=== PATIENT | male | born 1940 ===

== ENCOUNTER 2017-08-19 00:45 | Day surgery (SDC) | payer OTHER ==
[~2017-08-19] VITALS: Ht 177.8 cm; Wt 98.0 kg
[~2017-08-19 00:45] MED LIST: ATOR40TA; CALCA400CH; CEFP250; DIGO.25 PO; GLIP5 PO; HYDROCHLOROTHIAZIDE PO; INSUASPI SC; INSULANPEN SC; INSULIN; LOSARTAN PO; LOSARTAN POTAS100 MG PO; LOSARTAN-HCTZ1 EAC1 PO; LOSHYD100 PO; MAGCHL64ER; METF500 PO; SITA100T2 PO; VALS80 PO; VERA240ERB PO; Verapamil HCl240 M1 PO; WARF10 PO; WARF2 PO; WARF5 PO
[2017-08-19] MEDS ORDERED: ATOR80 PO (10:55)
[2017-08-19] MEDS ORDERED: METO50ER PO (10:56)
== END 2017-08-19 14:35 | disposition home or self-care (01) ==
LOC: MHTC 00:45
PROC: B2111ZZ Fluoroscopy of Multiple Coronary Arteries using Low Osmolar Contrast (ICD-10-PCS; principal; 2017-08-19)
DX: I35.0 Nonrheumatic aortic (valve) stenosis (principal); I25.10 Atherosclerotic heart disease of native coronary artery without angina pectoris; R06.02 Shortness of breath; E11.22 Type 2 diabetes mellitus with diabetic chronic kidney disease; I12.9 Hypertensive chronic kidney disease with stage 1 through stage 4 chronic kidney disease, or unspecified chronic kidney disease; N18.9 Chronic kidney disease, unspecified; E78.5 Hyperlipidemia, unspecified; I48.2 Chronic atrial fibrillation; Z88.6 Allergy status to analgesic agent; Z79.899 Other long term (current) drug therapy; Z79.01 Long term (current) use of anticoagulants; Z79.4 Long term (current) use of insulin; Z79.84 Long term (current) use of oral hypoglycemic drugs
CPT/HCPCS: 82947; 93454; 99152; 99153; C1769; C1894; J0360; J0690; J1644; J2250; J3010; J7030; Q9967

== ENCOUNTER 2017-09-12 12:45 | Inpatient (IN) | payer OTHER ==
[~2017-09-12] VITALS: Ht 177.8 cm; Wt 99.9 kg
[~2017-09-12 12:45] MED LIST changes: +ATOR80 PO; +METO50ER PO
[2017-09-12 13:00] LABS: Calcium, Ionized (POC) 1.03 mmol/L (1.10-1.46); Chloride (POC) 101 mmol/L (98-108); Creatinine (POC) 1.8 mg/dL (0.8-1.3); Glucose (ISTAT POC) 426 mg/dL (70-99); Hemoglobin (POC) 6.8 g/dL (13.5-17.5); Potassium (POC) 4.4 mmol/L (3.5-5.5); Sodium (POC) 135 mmol/L (135-148); Total CO2 (POC) 19 mmol/L (21-32)
[2017-09-12 14:13] LABS: Hematocrit 22.9 % (37.0-53.0); Hemoglobin 7.2 g/dL (13.5-17.5); Mean Corpuscular HGB Conc 31.4 g/dL (31.5-36.5); Mean Corpuscular Volume 92 fL (80-100); Mean Platelet Volume 9.9 fL (9.1-12.4); NRBC ABSOLUTE 0.04 K/mm3 (0.00-0.02); NRBC Auto 0.3 /100 WBC (0.0-0.2); Platelet Count 339 K/mm3 (150-400); RDW Coefficient Variation 13.7 % (11.7-14.2); RDW Standard Deviation 45.2 fL (35.1-46.3); Red Blood Cell Count 2.48 M/mm3 (4.30-5.90); White Blood Cell Count 12.23 K/mm3 (4.00-11.30)
[2017-09-12 14:26] LABS: Albumin, Blood 2.5 g/dL (3.4-5.0); Albumin/Globulin Ratio 0.7 (0.8-1.8); Bilirubin, Total 0.6 mg/dL (0.1-1.0); Bun/Creatinine Ratio 33.1 (12.0-20.0); Calcium, Blood 7.9 mg/dL (8.5-10.1); Creatinine, Blood 1.6 mg/dL (0.60-1.20); Globulin, Blood 3.5 g/dL (2.2-4.0); Magnesium, Blood 2.3 mg/dL (1.6-2.4); Potassium, Blood 4.6 mmol/L (3.5-5.5)
[2017-09-12 14:35] LABS: BAND PERCENT MAN 3 % (0-8); BASOPHILS ABSOLUTE MAN 0.24 K/mm3 (0.00-0.23); BASOPHILS PERCENT MAN 2 % (0-2); EOSINOPHILS PERCENT MAN 0 % (0-6); LYMPHOCYTES ABSOLUTE MAN 1.83 K/mm3 (0.84-5.20); LYMPHOCYTES PERCENT MAN 15 % (21-46); METAMYELOCYTE ABSOLUTE MAN 0.12 K/mm3 (0.00-0.00); METAMYELOCYTE PERCENT MAN 1 % (0-0); MONOCYTES ABSOLUTE MAN 0.48 K/mm3 (0.16-1.47); MONOCYTES PERCENT MAN 4 % (4-13); NEUTROPHILS ABSOLUTE MAN 9.53 K/mm3 (1.96-9.15); SEG NEUTROPHILS PERCENT MAN 75 % (41-73); TOTAL CELLS COUNTED 100
[2017-09-12 15:24] LABS: International Normalized Ratio 3.16; Prothrombin Time Results 34.1 Sec (9.7-11.5)
[2017-09-12] MEDS ORDERED: FURO40 PO (15:44)
[2017-09-12] MEDS ORDERED: WARF7.5 PO (15:45)
[2017-09-12] MEDS ORDERED: AMLO10 PO ×2 (15:46→18:43)
[2017-09-12] MEDS ORDERED: LOSARTAN POTAS100 MG PO (15:46)
[2017-09-12] MEDS ORDERED: METO100ER PO (15:47)
[2017-09-13 04:17] LABS: BASOPHILS ABSOLUTE AUTO 0.03 K/mm3 (0.00-0.23); BASOPHILS PERCENT AUTO 0 % (0-2); EOSINOPHILS ABSOLUTE AUTO 0.22 K/mm3 (0.00-0.68); EOSINOPHILS PERCENT AUTO 2 % (0-6); Hematocrit 24.4 % (37.0-53.0); Hemoglobin 8.1 g/dL (13.5-17.5); IMMATURE GRAN PERCENT AUTO 3 % (0-1); LYMPHOCYTES ABSOLUTE AUTO 1.98 K/mm3 (0.84-5.20); LYMPHOCYTES PERCENT AUTO 16 % (21-46); MONOCYTES ABSOLUTE AUTO 0.96 K/mm3 (0.16-1.47); MONOCYTES PERCENT AUTO 8 % (4-13); Mean Corpuscular HGB 29.7 pg (26.0-34.0); Mean Corpuscular HGB Conc 33.2 g/dL (31.5-36.5); Mean Platelet Volume 8.6 fL (9.1-12.4); NEUTROPHILS ABSOLUTE AUTO 8.63 K/mm3 (1.96-9.15); NEUTROPHILS PERCENT AUTO 71 % (41-73); NRBC ABSOLUTE 0.04 K/mm3 (0.00-0.02); NRBC Auto 0.3 /100 WBC (0.0-0.2); Platelet Count 242 K/mm3 (150-400); RDW Coefficient Variation 14.1 % (11.7-14.2); RDW Standard Deviation 45.1 fL (35.1-46.3); Red Blood Cell Count 2.73 M/mm3 (4.30-5.90); White Blood Cell Count 12.22 K/mm3 (4.00-11.30)
[2017-09-13 04:18] LABS: Mean Corpuscular Volume 89 fL (80-100)
[2017-09-13 04:30] LABS: International Normalized Ratio 3.05; Prothrombin Time Results 32.8 Sec (9.7-11.5)
[2017-09-13 04:33] LABS: Albumin, Blood 2.5 g/dL (3.4-5.0); Anion Gap 8 mmol/L (6-16); Blood Urea Nitrogen 45 mg/dL (8-24); Bun/Creatinine Ratio 29.2 (12.0-20.0); CO2, Blood 25 mmol/L (21-32); Calcium, Blood 7.6 mg/dL (8.5-10.1); Chloride, Blood 108 mmol/L (98-108); Creatinine, Blood 1.54 mg/dL (0.60-1.20); Glomerular Filtration Rate 47 (60-); Glucose, Blood 227 mg/dL (70-99); Phosphorus, Blood 3.3 mg/dL (2.5-4.9); Potassium, Blood 3.7 mmol/L (3.5-5.5); Sodium, Blood 141 mmol/L (136-145)
[2017-09-13 14:21] LABS: Hematocrit 24.1 % (37.0-53.0)
[2017-09-14 05:33] LABS: International Normalized Ratio 3.21; Prothrombin Time Results 34.6 Sec (9.7-11.5)
[2017-09-14 09:18] LABS: Hematocrit 28.2 % (37.0-53.0); Hemoglobin 8.9 g/dL (13.5-17.5)
[2017-09-15 05:29] LABS: International Normalized Ratio 2.58; Prothrombin Time Results 27.6 Sec (9.7-11.5)
[2017-09-16 05:27] LABS: BASOPHILS ABSOLUTE AUTO 0.05 K/mm3 (0.00-0.23); BASOPHILS PERCENT AUTO 0 % (0-2); EOSINOPHILS PERCENT AUTO 1 % (0-6); Hematocrit 29.2 % (37.0-53.0); Hemoglobin 9.4 g/dL (13.5-17.5); IMMATURE GRAN ABSOLUTE AUTO 0.15 K/mm3 (0.00-0.10); IMMATURE GRAN PERCENT AUTO 1 % (0-1); LYMPHOCYTES ABSOLUTE AUTO 1.77 K/mm3 (0.84-5.20); LYMPHOCYTES PERCENT AUTO 13 % (21-46); MONOCYTES PERCENT AUTO 7 % (4-13); Mean Corpuscular HGB 28.8 pg (26.0-34.0); Mean Corpuscular HGB Conc 32.2 g/dL (31.5-36.5); Mean Corpuscular Volume 90 fL (80-100); Mean Platelet Volume 9.3 fL (9.1-12.4); NEUTROPHILS ABSOLUTE AUTO 10.87 K/mm3 (1.96-9.15); NEUTROPHILS PERCENT AUTO 78 % (41-73); Platelet Count 281 K/mm3 (150-400); RDW Coefficient Variation 15.9 % (11.7-14.2); RDW Standard Deviation 49.1 fL (35.1-46.3); Red Blood Cell Count 3.26 M/mm3 (4.30-5.90); White Blood Cell Count 13.94 K/mm3 (4.00-11.30)
[2017-09-16 05:40] LABS: International Normalized Ratio 1.8; Prothrombin Time Results 19.1 Sec (9.7-11.5)
[2017-09-16 06:03] LABS: Bun/Creatinine Ratio 16.5 (12.0-20.0); Calcium, Blood 8.5 mg/dL (8.5-10.1); Creatinine, Blood 1.76 mg/dL (0.60-1.20); Potassium, Blood 3.8 mmol/L (3.5-5.5)
[2017-09-16] MEDS ORDERED: Acetaminophen325 M1 PO (08:51)
[2017-09-16] MEDS ORDERED: MAGCHL64ER PO (08:55)
[2017-09-16] MEDS ORDERED: Percocet 5-3251 EACH PO (08:57)
== END 2017-09-16 11:23 | disposition home or self-care (01) | DRG 812 ==
LOC: ER 12:45 → MEDS 15:05 → ENPENDDIS 09-16 08:30 → MEDS 09-16 11:23
PROVIDERS: Emergency Medicine; Family Medicine; Internal Medicine
PROC: 30233N1 Transfusion of Nonautologous Red Blood Cells into Peripheral Vein, Percutaneous Approach (ICD-10-PCS; principal; 2017-09-12)
DX: D62 Acute posthemorrhagic anemia (principal); E11.22 Type 2 diabetes mellitus with diabetic chronic kidney disease; I48.2 Chronic atrial fibrillation; R79.1 Abnormal coagulation profile; Z79.01 Long term (current) use of anticoagulants; Z95.2 Presence of prosthetic heart valve; Z95.1 Presence of aortocoronary bypass graft; R19.7 Diarrhea, unspecified; I25.10 Atherosclerotic heart disease of native coronary artery without angina pectoris; I12.9 Hypertensive chronic kidney disease with stage 1 through stage 4 chronic kidney disease, or unspecified chronic kidney disease; N18.9 Chronic kidney disease, unspecified
CPT/HCPCS: 36415; 36430; 71045; 80047; 80048; 80053; 80069; 82947; 83605; 83735; 85014; 85018; 85025; 85610; 86850; 86900; 86901; 86923; 87040; 87493; 93005; 93010; 96361; 96374; 97161; 99285; G8978; G8979; J1815; J2543; J3370; J7030; J7050; P9016

== ENCOUNTER → 2018-01-01 | Outpatient (CLI) | payer OTHER ==
[~2018-01-01] MED LIST changes: +AMLO10 PO; +Acetaminophen325 M1 PO; +FURO40 PO; +MAGCHL64ER PO; +METO100ER PO; +Percocet 5-3251 EACH PO; +WARF7.5 PO
== END | disposition home or self-care (01) ==
LOC: OLS 06:00 → LAB SHORT 06:00
DX: K52.9 Noninfective gastroenteritis and colitis, unspecified (principal)
CPT/HCPCS: 87015; 87045; 87046; 87205; 87493; 87899

== ENCOUNTER → 2018-01-03 | Outpatient (CLI) | payer OTHER | END | disposition home or self-care (01) | LOC: OLS 14:28 → LAB SHORT 14:28 | DX: K52.9 Noninfective gastroenteritis and colitis, unspecified (principal) | CPT/HCPCS: 87329 ==

== ENCOUNTER 2018-01-15 09:26 | Emergency (ER) | payer OTHER ==
[~2018-01-15] VITALS: Ht 177.8 cm; Wt 91.6 kg
[2018-01-15] MEDS ORDERED: INSULANPEN SC (10:05)
[2018-01-15] MEDS ORDERED: METF500C PO (10:05)
[2018-01-15] MEDS ORDERED: WARF7.5 PO (10:06)
[2018-01-15] MEDS ORDERED: AMLO10 PO (10:07)
[2018-01-15] MEDS ORDERED: METO100ER PO (10:07)
[2018-01-15] MEDS ORDERED: ATOR80 PO (10:08)
[2018-01-15] MEDS ORDERED: Ferrous Sulfat325 M2 PO (10:08)
[2018-01-15] MEDS ORDERED: VIBERZI75 MG PO (10:09)
[2018-01-15] MEDS ORDERED: LOSA50 PO (10:09)
[2018-01-15 10:15] LABS: BASOPHILS ABSOLUTE AUTO 0.06 K/mm3 (0.00-0.23); BASOPHILS PERCENT AUTO 1 % (0-2); EOSINOPHILS ABSOLUTE AUTO 0.27 K/mm3 (0.00-0.68); EOSINOPHILS PERCENT AUTO 4 % (0-6); Hematocrit 34.6 % (37.0-53.0); IMMATURE GRAN ABSOLUTE AUTO 0.01 K/mm3 (0.00-0.10); IMMATURE GRAN PERCENT AUTO 0 % (0-1); LYMPHOCYTES ABSOLUTE AUTO 1.72 K/mm3 (0.84-5.20); LYMPHOCYTES PERCENT AUTO 23 % (21-46); MONOCYTES ABSOLUTE AUTO 0.56 K/mm3 (0.16-1.47); MONOCYTES PERCENT AUTO 8 % (4-13); Mean Corpuscular HGB 26.8 pg (26.0-34.0); Mean Corpuscular HGB Conc 31.8 g/dL (31.5-36.5); Mean Corpuscular Volume 84 fL (80-100); Mean Platelet Volume 9.8 fL (9.1-12.4); NEUTROPHILS ABSOLUTE AUTO 4.82 K/mm3 (1.96-9.15); NEUTROPHILS PERCENT AUTO 65 % (41-73); Platelet Count 231 K/mm3 (150-400); RDW Coefficient Variation 14.9 % (11.7-14.2); RDW Standard Deviation 45.4 fL (35.1-46.3); Red Blood Cell Count 4.11 M/mm3 (4.30-5.90); White Blood Cell Count 7.44 K/mm3 (4.00-11.30)
[2018-01-15 10:25] LABS: International Normalized Ratio 2.41; Prothrombin Time Results 23.6 Sec (9.7-11.5)
[2018-01-15 10:30] LABS: Calcium, Blood 8.9 mg/dL (8.5-10.1); Creatinine, Blood 1.65 mg/dL (0.60-1.20); Potassium, Blood 4.4 mmol/L (3.5-5.5)
== END 2018-01-15 12:53 | disposition home or self-care (01) ==
LOC: ER 09:26
PROVIDERS: Emergency Medicine
DX: R55 Syncope and collapse (principal); M54.5 Low back pain; Z88.8 Allergy status to other drugs, medicaments and biological substances; Z79.899 Other long term (current) drug therapy; Z79.84 Long term (current) use of oral hypoglycemic drugs; Z79.4 Long term (current) use of insulin; Z79.01 Long term (current) use of anticoagulants; I48.91 Unspecified atrial fibrillation; E11.9 Type 2 diabetes mellitus without complications
CPT/HCPCS: 36415; 70450; 72100; 72125; 76775; 80048; 85025; 85610; 93005; 93010; 96360; 96361; 99284; J7030

== ENCOUNTER → 2018-01-24 | Outpatient (CLI) | payer OTHER ==
[~2018-01-24] MED LIST changes: +Ferrous Sulfat325 M2 PO; +LOSA50 PO; +METF500C PO; +VIBERZI75 MG PO
[2018-01-24 11:18] LABS: Creatinine Urine 63.5 mg/dL (27.00-270.00); Protein, Urine Quantitative 15.1 mg/dL (0.0-11.9)
[2018-01-24 11:20] LABS: Microalbumin, Urine Quant. 43.9 mg/L (0.000-20.000)
== END ==
LOC: OLS 06:20 → LAB SHORT 06:20
PROVIDERS: Internal Medicine Nephrology
DX: N18.3 Chronic kidney disease, stage 3 (moderate) (principal); D63.1 Anemia in chronic kidney disease; N28.9 Disorder of kidney and ureter, unspecified; R76.9 Abnormal immunological finding in serum, unspecified; R94.5 Abnormal results of liver function studies; R94.6 Abnormal results of thyroid function studies; N25.81 Secondary hyperparathyroidism of renal origin; E55.9 Vitamin D deficiency, unspecified; E78.00 Pure hypercholesterolemia, unspecified; D51.8 Other vitamin B12 deficiency anemias; D52.8 Other folate deficiency anemias; D50.9 Iron deficiency anemia, unspecified
CPT/HCPCS: 81050; 82043; 82570; 84156

== ENCOUNTER → 2018-04-24 | Outpatient (CLI) | payer OTHER ==
[2018-04-25 14:04] LABS: Stool Occult Blood Guaiac 1 Neg (Neg)
== END | disposition home or self-care (01) ==
LOC: LAB SHORT 11:00 → LAB 11:00 → LAB FUT 04-21 14:20
PROVIDERS: Internal Medicine Nephrology
DX: N18.3 Chronic kidney disease, stage 3 (moderate) (principal); D63.1 Anemia in chronic kidney disease
CPT/HCPCS: 82272

== ENCOUNTER → 2018-07-08 | Outpatient (CLI) | payer OTHER | END | disposition home or self-care (01) | LOC: LAB SHORT 11:30 → LAB 11:30 → LAB FUT 07-04 12:10 | DX: R19.7 Diarrhea, unspecified (principal) | CPT/HCPCS: 87015; 87045; 87046; 87205; 87329; 87493; 87899 ==

== ENCOUNTER 2018-07-28 05:01 | Emergency (ER) | payer OTHER ==
[~2018-07-28] VITALS: Ht 177.8 cm; Wt 92.5 kg
[2018-07-28] MEDS ORDERED: CALC.25 PO (05:17)
[2018-07-28] MEDS ORDERED: CARV25 PO ×2 (05:17)
[2018-07-28] MEDS ORDERED: IRON150C PO (05:19)
[2018-07-28] MEDS ORDERED: FURO20 PO (05:19)
[2018-07-28] MEDS ORDERED: Jantoven1 MG PO ×2 (05:20)
[2018-07-28] MEDS ORDERED: LOSA25 PO (05:21)
[2018-07-28] MEDS ORDERED: POTCHL20ER PO (05:21)
[2018-07-28] MEDS ORDERED: VIBERZI100 MG PO (05:22)
[2018-07-28] MEDS ORDERED: Vitamin C500 M3 PO (05:23)
[2018-07-28] MEDS ORDERED: FISH OIL 1,0001 EACH PO (05:24)
[2018-07-28] MEDS ORDERED: VITAMIN D350000 UNIT PO (05:24)
[2018-07-28 05:35] LABS: BASOPHILS ABSOLUTE AUTO 0.05 K/mm3 (0.00-0.23); BASOPHILS PERCENT AUTO 0 % (0-2); EOSINOPHILS ABSOLUTE AUTO 0.11 K/mm3 (0.00-0.68); EOSINOPHILS PERCENT AUTO 1 % (0-6); Hematocrit 39.6 % (37.0-53.0); Hemoglobin 13.1 g/dL (13.5-17.5); IMMATURE GRAN ABSOLUTE AUTO 0.05 K/mm3 (0.00-0.10); IMMATURE GRAN PERCENT AUTO 0 % (0-1); LYMPHOCYTES ABSOLUTE AUTO 1.66 K/mm3 (0.84-5.20); LYMPHOCYTES PERCENT AUTO 15 % (21-46); MONOCYTES ABSOLUTE AUTO 0.78 K/mm3 (0.16-1.47); MONOCYTES PERCENT AUTO 7 % (4-13); Mean Corpuscular HGB Conc 33.1 g/dL (31.5-36.5); Mean Corpuscular Volume 88 fL (80-100); Mean Platelet Volume 9.6 fL (9.1-12.4); NEUTROPHILS ABSOLUTE AUTO 8.58 K/mm3 (1.96-9.15); NEUTROPHILS PERCENT AUTO 77 % (41-73); Platelet Count 211 K/mm3 (150-400); RDW Coefficient Variation 13.4 % (11.7-14.2); Red Blood Cell Count 4.52 M/mm3 (4.30-5.90); White Blood Cell Count 11.23 K/mm3 (4.00-11.30)
[2018-07-28 05:47] LABS: Albumin, Blood 4.1 g/dL (3.4-5.0); Albumin/Globulin Ratio 1.1 (0.8-1.8); Bilirubin, Total 0.8 mg/dL (0.1-1.0); Bun/Creatinine Ratio 28.1 (12.0-20.0); Calcium, Blood 9.4 mg/dL (8.5-10.1); Creatinine, Blood 1.67 mg/dL (0.60-1.20); Globulin, Blood 3.9 g/dL (2.2-4.0); Potassium, Blood 3.9 mmol/L (3.5-5.5)
== END 2018-07-28 07:30 | disposition home or self-care (01) ==
LOC: ER 05:01
PROVIDERS: Emergency Medicine
DX: E11.22 Type 2 diabetes mellitus with diabetic chronic kidney disease (principal); I12.9 Hypertensive chronic kidney disease with stage 1 through stage 4 chronic kidney disease, or unspecified chronic kidney disease; N18.9 Chronic kidney disease, unspecified; I48.91 Unspecified atrial fibrillation; Z95.1 Presence of aortocoronary bypass graft; Z98.890 Other specified postprocedural states; Z88.6 Allergy status to analgesic agent; Z79.4 Long term (current) use of insulin; Z79.01 Long term (current) use of anticoagulants; Z79.899 Other long term (current) drug therapy
CPT/HCPCS: 36415; 71046; 80053; 82272; 83690; 84484; 85025; 93005; 93010; 96374; 99284-25; J2405

== ENCOUNTER 2018-08-07 09:51 | Day surgery (SDC) | payer OTHER ==
[~2018-08-07] VITALS: Ht 177.8 cm; Wt 86.9 kg
[~2018-08-07 09:51] MED LIST changes: +CALC.25 PO; +CARV25 PO; +FISH OIL 1,0001 EACH PO; +FURO20 PO; +IRON150C PO; +Jantoven1 MG PO; +LOSA25 PO; +POTCHL20ER PO; +VIBERZI100 MG PO; +VITAMIN D350000 UNIT PO; +Vitamin C500 M3 PO
[2018-08-07] MEDS ORDERED: WARF1 (10:27)
--- NOTE | 2018-08-07 11:08 | NUR ---
08/07/18 1108 Mirian Amato METOPROLOL 1MG IV GIVEN PER DR. YAN PEÑA.
--- NOTE | 2018-08-07 12:18 | NUR ---
08/07/18 [address] VIRAMONTES PT IS OK TO RESUME COUMADIN TODAY 08/06/18
== END 2018-08-07 12:15 | disposition home or self-care (01) ==
LOC: ORSCSDS 09:51
PROVIDERS: Surgery
PROC: 0DBL8ZX Excision of Transverse Colon, Via Natural or Artificial Opening Endoscopic, Diagnostic (ICD-10-PCS; principal; 2018-08-07 10:45)
PROC: 0DBE8ZX Excision of Large Intestine, Via Natural or Artificial Opening Endoscopic, Diagnostic (ICD-10-PCS; principal; 2018-08-07 10:45)
PROC: 0DBM8ZX Excision of Descending Colon, Via Natural or Artificial Opening Endoscopic, Diagnostic (ICD-10-PCS; principal; 2018-08-07 10:45)
PROC: 0DBH8ZX Excision of Cecum, Via Natural or Artificial Opening Endoscopic, Diagnostic (ICD-10-PCS; principal; 2018-08-07 10:45)
DX: R19.4 Change in bowel habit (principal); D12.0 Benign neoplasm of cecum; D12.4 Benign neoplasm of descending colon; D12.3 Benign neoplasm of transverse colon; Z86.010 Personal history of colon polyps; I10 Essential (primary) hypertension; I48.91 Unspecified atrial fibrillation; I25.10 Atherosclerotic heart disease of native coronary artery without angina pectoris; E11.9 Type 2 diabetes mellitus without complications; Z79.01 Long term (current) use of anticoagulants; Z79.4 Long term (current) use of insulin; Z79.84 Long term (current) use of oral hypoglycemic drugs; Z79.899 Other long term (current) drug therapy
CPT/HCPCS: 82947; 88305; J7120

== ENCOUNTER 2018-08-12 09:21 | Emergency (ER) | payer OTHER ==
[~2018-08-12] VITALS: Ht 177.8 cm; Wt 86.2 kg
[~2018-08-12 09:21] MED LIST changes: +WARF1
[2018-08-12 09:57] LABS: BASOPHILS ABSOLUTE AUTO 0.09 K/mm3 (0.00-0.23); BASOPHILS PERCENT AUTO 1 % (0-2); EOSINOPHILS ABSOLUTE AUTO 0.27 K/mm3 (0.00-0.68); EOSINOPHILS PERCENT AUTO 3 % (0-6); Hematocrit 35.4 % (37.0-53.0); Hemoglobin 11.6 g/dL (13.5-17.5); IMMATURE GRAN PERCENT AUTO 1 % (0-1); LYMPHOCYTES ABSOLUTE AUTO 2.22 K/mm3 (0.84-5.20); LYMPHOCYTES PERCENT AUTO 22 % (21-46); MONOCYTES ABSOLUTE AUTO 0.73 K/mm3 (0.16-1.47); MONOCYTES PERCENT AUTO 7 % (4-13); Mean Corpuscular HGB 29.5 pg (26.0-34.0); Mean Corpuscular HGB Conc 32.8 g/dL (31.5-36.5); Mean Corpuscular Volume 90 fL (80-100); Mean Platelet Volume 9.4 fL (9.1-12.4); NEUTROPHILS ABSOLUTE AUTO 6.81 K/mm3 (1.96-9.15); NEUTROPHILS PERCENT AUTO 67 % (41-73); Platelet Count 330 K/mm3 (150-400); RDW Coefficient Variation 12.7 % (11.7-14.2); RDW Standard Deviation 41.8 fL (35.1-46.3); Red Blood Cell Count 3.93 M/mm3 (4.30-5.90); White Blood Cell Count 10.22 K/mm3 (4.00-11.30)
[2018-08-12 10:04] LABS: International Normalized Ratio 1.36; Prothrombin Time Results 13.8 Sec (9.7-11.5)
[2018-08-12 10:07] LABS: Alanine Aminotransfer (ALT/SGP 40 U/L (12-78); Albumin, Blood 3.2 g/dL (3.4-5.0); Albumin/Globulin Ratio 0.8 (0.8-1.8); Alk Phos 56 U/L (50-136); Anion Gap 9 mmol/L (6-16); Aspartate Aminotrans (AST/SGOT 27 U/L (12-37); Bilirubin, Total 0.5 mg/dL (0.1-1.0); Blood Urea Nitrogen 36 mg/dL (8-24); Bun/Creatinine Ratio 21.1 (12.0-20.0); CO2, Blood 27 mmol/L (21-32); Calcium, Blood 8.8 mg/dL (8.5-10.1); Chloride, Blood 107 mmol/L (98-108); Creatinine, Blood 1.71 mg/dL (0.60-1.20); Globulin, Blood 3.9 g/dL (2.2-4.0); Glomerular Filtration Rate 41 (60-); Glucose, Blood 103 mg/dL (70-99); Potassium, Blood 4.2 mmol/L (3.5-5.5); Sodium, Blood 143 mmol/L (136-145); Total Protein, Blood 7.1 g/dL (6.4-8.2); Troponin I <0.015 ng/mL (0.000-0.040)
== END 2018-08-12 13:16 | disposition home or self-care (01) ==
LOC: ER 09:21
PROVIDERS: Emergency Medicine
DX: R42 Dizziness and giddiness (principal); R00.1 Bradycardia, unspecified; I48.91 Unspecified atrial fibrillation; Z88.8 Allergy status to other drugs, medicaments and biological substances; Z79.899 Other long term (current) drug therapy; Z79.4 Long term (current) use of insulin; Z79.01 Long term (current) use of anticoagulants; E11.9 Type 2 diabetes mellitus without complications
CPT/HCPCS: 71045; 80053; 83880; 84484; 85025; 85610; 93005; 93010; 99284-25

== ENCOUNTER → 2021-01-02 | Outpatient (CLI) | payer OTHER ==
[2021-01-03 10:41] LABS: C DIFFICILE DNA NEGATIVE (Negative)
[2021-01-03 11:11] LABS: FATS, NEUTRAL Normal (.); FATS, TOTAL Normal (.)
== END | disposition home or self-care (01) ==
LOC: LAB 08:10 → LAB SHORT 08:10
PROVIDERS: Family Medicine
DX: R19.7 Diarrhea, unspecified (principal)
CPT/HCPCS: 82705; 87015; 87045; 87046; 87205; 87493; 87899

== ENCOUNTER → 2021-12-22 | Outpatient (CLI) | payer OTHER ==
[2021-12-23 08:21] LABS: C DIFFICILE DNA NEGATIVE (Negative)
== END | disposition home or self-care (01) ==
LOC: LAB SHORT 14:10 → LAB 14:10
PROVIDERS: Internal Medicine Nephrology
DX: N18.30 Chronic kidney disease, stage 3 unspecified (principal); D63.1 Anemia in chronic kidney disease; N25.81 Secondary hyperparathyroidism of renal origin; E55.9 Vitamin D deficiency, unspecified; E78.00 Pure hypercholesterolemia, unspecified; E29.1 Testicular hypofunction; R76.9 Abnormal immunological finding in serum, unspecified; R94.5 Abnormal results of liver function studies; R94.6 Abnormal results of thyroid function studies
CPT/HCPCS: 87493

== ENCOUNTER → 2022-02-08 | Outpatient (CLI) | payer OTHER ==
[2022-02-08 14:08] LABS: BASOPHILS ABSOLUTE AUTO 0.04 K/mm3 (0.00-0.23); BASOPHILS PERCENT AUTO 1 % (0-2); EOSINOPHILS ABSOLUTE AUTO 0.13 K/mm3 (0.00-0.68); EOSINOPHILS PERCENT AUTO 2 % (0-6); Hematocrit 40.4 % (37.0-53.0); Hemoglobin 13.1 g/dL (13.5-17.5); IMMATURE GRAN ABSOLUTE AUTO 0.02 K/mm3 (0.00-0.10); IMMATURE GRAN PERCENT AUTO 0 % (0-1); LYMPHOCYTES ABSOLUTE AUTO 0.84 K/mm3 (0.84-5.20); LYMPHOCYTES PERCENT AUTO 13 % (21-46); MONOCYTES ABSOLUTE AUTO 0.48 K/mm3 (0.16-1.47); MONOCYTES PERCENT AUTO 7 % (4-13); Mean Corpuscular HGB 29.5 pg (26.0-34.0); Mean Corpuscular HGB Conc 32.4 g/dL (31.5-36.5); Mean Corpuscular Volume 91 fL (80-100); Mean Platelet Volume 9.7 fL (9.1-12.4); NEUTROPHILS ABSOLUTE AUTO 4.96 K/mm3 (1.96-9.15); NEUTROPHILS PERCENT AUTO 77 % (41-73); Platelet Count 221 K/mm3 (150-400); RDW Coefficient Variation 14.7 % (11.7-14.2); RDW Standard Deviation 48.9 fL (35.1-46.3); Red Blood Cell Count 4.44 M/mm3 (4.30-5.90); White Blood Cell Count 6.47 K/mm3 (4.00-11.30)
[2022-02-08 14:27] LABS: Albumin, Blood 2.2 g/dL (3.4-5.0); Albumin/Globulin Ratio 0.8 (0.8-1.8); Bilirubin, Total 0.5 mg/dL (0.1-1.0); Bun/Creatinine Ratio 26.5 (12.0-20.0); Calcium, Blood 8.3 mg/dL (8.5-10.1); Creatinine, Blood 2.34 mg/dL (0.60-1.20); Globulin, Blood 2.6 g/dL (2.2-4.0); Potassium, Blood 4.4 mmol/L (3.5-5.5); Thyroid Stimulating Hormone 5.936 uIU/mL (0.360-4.800); Total Protein, Blood 4.8 g/dL (6.4-8.2)
== END | disposition home or self-care (01) ==
LOC: LAB SHORT 14:02 → LAB 14:02
PROVIDERS: Chiropractor
DX: K52.9 Noninfective gastroenteritis and colitis, unspecified (principal); R07.9 Chest pain, unspecified; R53.82 Chronic fatigue, unspecified
CPT/HCPCS: 80053; 83735; 83880; 84443; 84484; 85025

== ENCOUNTER → 2022-02-09 | Outpatient (CLI) | payer OTHER ==
[2022-02-09 13:30] LABS: Bun/Creatinine Ratio 26.5 (12.0-20.0); Calcium, Blood 7.9 mg/dL (8.5-10.1); Creatinine, Blood 2.19 mg/dL (0.60-1.20); Free Thyroxine 1.13 ng/dL (0.70-1.60); Potassium, Blood 4.6 mmol/L (3.5-5.5)
== END | disposition home or self-care (01) ==
LOC: LAB 13:07 → LAB SHORT 13:07
PROVIDERS: Chiropractor
DX: N17.9 Acute kidney failure, unspecified (principal); E04.9 Nontoxic goiter, unspecified
CPT/HCPCS: 80048; 84439